=== PATIENT | female | born 1985 | race Caucasian/White ===

== ENCOUNTER 2018-08-13 22:20 | Emergency (ER) | payer OTHER ==
[~2018-08-13] VITALS: Ht 167.6 cm; Wt 95.0 kg
[2018-08-13 22:24] VITALS: Ht 167.6 cm; Wt 95.0 kg
--- NOTE | 2018-08-13 22:28 | ERD ---
ER Documentation Chief Complaint Chief Complaint HPI This is a 32-year-old woman brought in by EMS for public intoxication and sleeping on a stranger's front lawn. Patient admitted to accidentally overdosing (used to much) alprazolam but EMS also found her to have low blood sugar in the mid 40s and administered dextrose syrup at the scene with some improvement in mental status. Patient denies trauma, no headache or blurry vision, no vomiting, no suicidal/homicidal ideation, no complaints of chest pain or shortness of breath ROS All systems reviewed and are negative except as per history of present illness. Allergies Allergies: Coded Allergies: No Known Allergy (Unverified , 08/13/18) PMhx/Soc Benzodiazepine abuse FmHx Family History: No diabetes Physical Exam Vitals Vital Signs Date Temp Pulse Resp B/P (MAP) Pulse Ox O2 O2 Flow FiO2 Time Delivery Rate 08/13/18 98.7 99 19 126/65 100 22:24 (85) 08/13/18 98.7 95 19 123/69 100 Room Air 22:24 (87) Physical Exam GENERAL: Well-developed, well-nourished, intoxicated, afebrile NEURO: Alert and oriented 3, cranial nerves II through XII intact bilaterally, pupils equal round reactive to light, no focal deficits or facial asymmetry, sensation intact distally Strength 5/5 in upper and lower extremities bilaterally CARDIAC: Regular rate and rhythm, no murmurs rubs or gallops LUNGS: Clear bilaterally no wheezing crackles or stridor ABDOMEN: Soft nontender, no guarding, no rigidity, no rebound, no psoas sign no obturator sign. Normoactive bowel sounds SKIN: Warm and dry to touch, no abrasions, contusions, or hematomas, no lacerations, no ecchymosis, no target lesions, and without ulcers EXTREMITIES: No clubbing cyanosis or edema, calves are bilaterally symmetrical, no Homans sign, no popliteal cord sign. Distal pulses equal and bilateral PSYCH: Intoxicated, lethargic Results 24 hrs Laboratory Tests Test 08/13/18 22:45 08/13/18 23:52 Bedside Glucose 253 mg/dL 87 mg/dL Procedures/MDM Patient was able to answer all questions in the ER and follow commands although she did appear lethargic and with benzodiazepine toxidrome. She was given food in the emergency department including sandwiches and multiple juice cups all of which she ate and drank. Patient's mental status improved. Observation Note: Time: 4 hours Family Hx: No Hypertension Evaluation: Multiple exams showed improving symptoms and no evidence of worsening mental status or signs of withdrawal Differential diagnoses considered, included but not limited to acute coronary syndrome, pulmonary embolism, aortic dissection, abdominal aortic aneurysm, sepsis, stroke, meningitis, encephalitis, pneumonia, appendicitis, cholecystitis, bowel obstruction, pyelonephritis, nephrolithiasis, cystitis, as well as metabolic, hematologic, and electrolyte abnormalities. As well as abscess, cellulitis, fractures, and dislocations. Patient feels much better at this time, and vital signs are normal, symptoms have improved. I did give strict instructions to return to the ED if symptoms continue or worsen, patient will otherwise follow-up with primary care physician. Patient understood instructions and agreed to plan. Disclaimer: Inadvertent spelling and grammatical errors are likely due to EHR/dictation software use and do not reflect on the overall quality of patient care. Also, please note that the electronic time recorded on this note does not necessarily reflect the actual time of the patient encounter. Departure Diagnosis: Primary Impression: Hypoglycemia Additional Impressions: Toxic metabolic encephalopathy Benzodiazepine overdose Encounter type: initial encounter Injury intent: accidental or unintentional Qualified Codes: T42.4X1A - Poisoning by benzodiazepines, accidental (unintentional), initial encounter Condition: SHEILA Matthew MD August 13, 2018 22:28
[2018-08-14 02:08] VITALS: BP 121/69; PULSE 81; RESP 19
== END 2018-08-14 02:08 | disposition home or self-care (01) ==
LOC: E/R 22:20
DX: E16.2 Hypoglycemia, unspecified (principal); G92 Toxic encephalopathy; T65.891A Toxic effect of other specified substances, accidental (unintentional), initial encounter
CPT/HCPCS: 82962; Z7502; 99283

== ENCOUNTER 2018-12-09 14:55 | Emergency (ER) | payer OTHER ==
[~2018-12-09] VITALS: Ht 162.6 cm; Wt 74.6 kg
[~2018-12-09 14:55] MED LIST: LORA0.5T PO; TRAZ-150 PO; VENL150T PO
[2018-12-09 15:12] VITALS: Ht 162.6 cm; Wt 74.6 kg
[2018-12-09 20:34] VITALS: BP 108/77; PULSE 68; RESP 16
== END 2018-12-09 20:34 | disposition home or self-care (01) ==
LOC: E/R 14:55
DX: T42.4X1A Poisoning by benzodiazepines, accidental (unintentional), initial encounter (principal); R40.2142 Coma scale, eyes open, spontaneous, at arrival to emergency department; R40.2362 Coma scale, best motor response, obeys commands, at arrival to emergency department; R40.2252 Coma scale, best verbal response, oriented, at arrival to emergency department; Z87.891 Personal history of nicotine dependence
CPT/HCPCS: 36415; 80053; 80307; 81001; 81025; 82962; 85025; Z7502; 99283